=== PATIENT | male | born 2000 | race African-American/Black ===

== ENCOUNTER 2020-08-18 11:05 | Emergency (ER) | payer MEDICAID, OTHER ==
[~2020-08-18] VITALS: Ht 165.1 cm; Wt 61.4 kg
[~2020-08-18 11:05] MED LIST: Concerta; LIDOcaine 1% W/epiNEPHrine 1:100,000 20ml vial ONE
[2020-08-18 11:11] VITALS: BP 120/63
[2020-08-18] MEDS ORDERED: TETanus/Pertussis (Acell)/Diphther VAC/PF (Tdap-Adult) 0.5ml syringe IMVAC ONE (11:25)
[2020-08-18] MEDS ORDERED: LIDOcaine 1% W/epiNEPHrine 1:200,000 10ml vial IJ ONE (11:25)
[2020-08-18] MEDS ORDERED: LIDOcaine 1% w/epiNEPHrine 1:200,000 30ml vial IJ ONE (11:35)
== END 2020-08-18 12:15 | disposition home or self-care (01) ==
LOC: ER 11:05
DX: S61.210A Laceration without foreign body of right index finger without damage to nail, initial encounter (principal); Z98.890 Other specified postprocedural states; W26.8XXA Contact with other sharp object(s), not elsewhere classified, initial encounter; Y93.G1 Activity, food preparation and clean up; Y92.89 Other specified places as the place of occurrence of the external cause; Y99.8 Other external cause status
CPT/HCPCS: 12002; 90471; 90715; 99283

== ENCOUNTER 2020-08-27 08:16 | Emergency (ER) | payer SELFPAY ==
[~2020-08-27] VITALS: Ht 165.1 cm; Wt 62.4 kg
[~2020-08-27 08:16] MED LIST changes: -LIDOcaine 1% W/epiNEPHrine 1:100,000 20ml vial ONE
[2020-08-27 08:19] VITALS: BP 103/58
== END 2020-08-27 08:42 | disposition home or self-care (01) ==
LOC: ER 08:16
DX: S61.411D Laceration without foreign body of right hand, subsequent encounter (principal); Z98.890 Other specified postprocedural states; X58.XXXD Exposure to other specified factors, subsequent encounter
CPT/HCPCS: 99281

== ENCOUNTER 2021-01-31 08:53 | Emergency (ER) | payer MEDICAID ==
[~2021-01-31] VITALS: Ht 165.1 cm; Wt 62.5 kg
[2021-01-31 09:14] VITALS: BP 113/63
[2021-01-31] MEDS ORDERED: DOXY-135 PO (09:27)
== END 2021-01-31 09:31 | disposition home or self-care (01) ==
LOC: ER 08:54
DX: H60.01 Abscess of right external ear (principal); Z79.899 Other long term (current) drug therapy
CPT/HCPCS: 99283